=== PATIENT | male | born 1965 | race Hispanic/Latino ===

== ENCOUNTER 2023-05-15 05:03 | Observation (INO) | payer BC ==
[2023-05-10 11:42] VITALS: BP 169/83; PULSE 67; RESP 15
[2023-05-15] VITALS (27 sets, daily range): BP systolic 132–182; BP diastolic 73–98; PULSE 64–85; RESP 14–21; O2SAT 94–98
[~2023-05-15] VITALS: Ht 170.2 cm; Wt 105.2 kg
[~2023-05-15 05:03] MED LIST: AEC81 PO; CETI10TA87 PO; FLUT16H EN; GLUC-252 PO; IBUP-2070 PO; L. A1CAP PO; MULT-1335 PO; SIMV-46 PO; TUMERIC PEG; VALS1TAB80 PO
[2023-05-15] MEDS ORDERED: CEFAZOLIN SODIUM 2 GM VIAL ONE (05:20)
[2023-05-15] MEDS ORDERED: LACTATED RINGERS 1000ML 1,000 ML IV ONE (05:20)
[2023-05-15] MEDS ORDERED: GENTAMICIN SULFATE 80 MG/2 ML VIAL ONE (06:45)
[2023-05-15] MEDS ORDERED: CEFAZOLIN SODIUM 1 GM VIAL ONE ×2 (06:45→06:51)
[2023-05-15] MEDS ORDERED: 0.9%NACL 100ML 48.45 ML, ROPIVACAINE 0.5% 5MG/ML 30ML 246.25 MG, KETOROLAC TROMETHAMINE... IV PRN ×5 (08:00)
[2023-05-15] MEDS ORDERED: SUCCINYLCHOLINE 200MG/10ML SYR ONE (09:00)
[2023-05-15] MEDS ORDERED: LIDOCAINE PF 100MG/5ML (2%) SYRINGE 5ML ONE (09:00)
[2023-05-15] MEDS ORDERED: DEXAMETHASONE SOD PHOSPHATE 10MG/ML 1ML VIAL ONE (09:01)
[2023-05-15] MEDS ORDERED: NEOSTIGMINE 5MG/5ML SYR IV ONE (09:01)
[2023-05-15] MEDS ORDERED: GLYCOPYRROLATE 1 MG/5 ML SYRINGE ONE (09:01)
[2023-05-15] MEDS ORDERED: MIDAZOLAM HCL 1 MG/ML 2ML VIAL ONE ×3 (09:01→10:48)
[2023-05-15] MEDS ORDERED: PROPOFOL 10 MG/ML 20ML VIAL IV ONE (09:01)
[2023-05-15] MEDS ORDERED: ROCURONIUM 10MG/1ML SYR 10 MG/ML ML ONE (09:01)
[2023-05-15] MEDS ORDERED: ONDANSETRON 4MG INJ ONE ×2 (09:01→13:02)
[2023-05-15] MEDS ORDERED: FENTANYL CITRATE PF 50 MCG/1 ML 2ML VIAL ONE ×3 (09:02→11:26)
[2023-05-15] MEDS ORDERED: CEFAZOLIN SODIUM 2 GM VIAL IVPB ONE ×2 (10:31→10:32)
[2023-05-15] MEDS ORDERED: TRANEXAMIC ACID 1000MG/10ML IV ONE (10:35)
[2023-05-15] MEDS ORDERED: TRANEXAMIC ACID 1000MG/10ML ONE ×2 (10:35)
[2023-05-15] MEDS ORDERED: GENTAMICIN SULFATE 80 MG/2 ML VIAL IM ONE (10:36)
[2023-05-15] MEDS ORDERED: DiphenhydrAMINE HCL 50 MG/ML VIAL ONE (12:23)
[2023-05-15] MEDS ORDERED: PHENYLEPHRINE HCL 10 MG/ML 1ML VIAL IV ONE (12:50)
[2023-05-15] MEDS ORDERED: MEPERIDINE-PF 25 MG/ML SYG ONE (13:02)
[2023-05-15] MEDS ORDERED: HYDROMORPHONE PCA 10 MG/50 ML 50 ML IV PRN (16:00)
[2023-05-15] MEDS ORDERED: MAG/ALUM/SIMETH 30 ML UDCUP PO PRN (16:00)
[2023-05-15] MEDS ORDERED: DIPHENOXYLATE HCL/ATROPINE 2.5/0.025 MG TAB PO PRN (16:00)
[2023-05-15] MEDS ORDERED: BENZOCAINE/MENTH/CETYLPYRD CL 1 EACH LOZENGE MM PRN (16:00)
[2023-05-15] MEDS ORDERED: TRAMADOL HCL 50 MG TABLET PO PRN (16:00)
[2023-05-15] MEDS ORDERED: ACETAMINOPHEN 325 MG TAB PO SCH (16:00)
[2023-05-15] MEDS ORDERED: ACETAMINOPHEN 325 MG TAB PO PRN ×2 (16:00)
[2023-05-15] MEDS ORDERED: DiphenhydrAMINE HCL 50 MG/ML VIAL IM PRN (16:00)
[2023-05-15] MEDS ORDERED: ONDANSETRON 4MG INJ IVP PRN (16:00)
[2023-05-15] MEDS ORDERED: DIPHENHYDRAMINE HCL 25 MG CAPSULE PO PRN (16:00)
[2023-05-15] MEDS ORDERED: DIPHENHYDRAMINE HCL 25 MG CAPSULE PO SCH (16:00)
[2023-05-15] MEDS ORDERED: LACTULOSE 20 GM/30 ML UDCUP PO PRN (16:00)
[2023-05-15] MEDS ORDERED: CEFAZOLIN SODIUM 2 GM VIAL IVPB SCH (18:30)
[2023-05-15] MEDS: 0.9%NACL 1000ML 1,000 ML IV SCH (21:48)
[2023-05-15] MEDS: CEFAZOLIN SODIUM 3 GM in DEXTROSE 5%-WATER 100 ML IVPB SCH (22:21)
[2023-05-16 00:03] VITALS: BP 127/73; PULSE 75; RESP 18
[2023-05-16] MEDS: 0.9%NACL 1000ML 1,000 ML IV SCH ×2 (02:00→12:42)
[2023-05-16 04:02] VITALS: BP 130/76; PULSE 71; RESP 18
[2023-05-16 04:05] LABS: HEMATOCRIT 36.3 % (42-54); MEAN CORPUSCULAR HEMOGLOBIN 28.9 pg (27.0-33.0); MEAN CORPUSCULAR HGB CONC 33.6 g/dL (32.0-36.0); RED BLOOD CELL COUNT(AUTO) 4.22 MIL/uL (4.50-6.20); RED CELL DISTRIBUTION WIDTH 13.2 % (11.0-15.5); WHITE BLOOD COUNT (AUTO) 14.7 K/uL (4.8-10.8)
[2023-05-16 04:08] LABS: CREATININE 0.9 mg/dL (0.5-1.5); MAGNESIUM 1.7 mg/dL (1.80-2.40); POTASSIUM 4.1 mmol/L (3.5-5.1)
[2023-05-16] MEDS: CEFAZOLIN SODIUM 3 GM in DEXTROSE 5%-WATER 100 ML IVPB SCH (05:17)
[2023-05-16 07:40] VITALS: O2SAT 97
[2023-05-16 07:57] VITALS: BP 139/82; PULSE 75; RESP 19
[2023-05-16] MEDS ORDERED: MAGNESIUM 2GM PREMIX 50ML 50 ML IV PRN (08:30)
[2023-05-16] MEDS ORDERED: FOLIC PO SCH (09:00)
[2023-05-16] MEDS ORDERED: MULTIVIT MIN PO SCH (09:00)
[2023-05-16] MEDS ORDERED: LYCOP PO SCH (09:00)
[2023-05-16] MEDS ORDERED: FLUTICASONE PROPIONATE 50MCG/SPRAY 16 GM BOTTLE EN SCH (09:00)
[2023-05-16] MEDS ORDERED: RIVAROXABAN 10 MG TABLET PO SCH (09:00)
[2023-05-16] MEDS ORDERED: TUMERIC 500 MG PO SCH (09:00)
[2023-05-16] MEDS ORDERED: CETIRIZINE HCL 5 MG TABLET PO SCH (09:00)
[2023-05-16] MEDS ORDERED: VIT K PO SCH (09:00)
[2023-05-16 11:31] VITALS: BP 120/65; PULSE 75; RESP 18
[2023-05-16 16:00] VITALS: BP 129/76; PULSE 80; RESP 18
== END 2023-05-16 16:27 | disposition home health service (06) ==
LOC: DAH 05:03 → DAHIP 05:04 → DAH 05:04 → 4BH 14:25
PROVIDERS: ADMIT Orthopaedic Surgery; ATTEND Orthopaedic Surgery
DX: M17.12 Unilateral primary osteoarthritis, left knee (principal); I10 Essential (primary) hypertension; E66.9 Obesity, unspecified; E78.5 Hyperlipidemia, unspecified; Q33.3 Agenesis of lung; Z96.652 Presence of left artificial knee joint; Z79.899 Other long term (current) drug therapy; Z98.890 Other specified postprocedural states; Z68.36 Body mass index [BMI] 36.0-36.9, adult
CPT/HCPCS: 87641; 27447; 96365; 96366 ×3; 96368; 97161; 97039 ×6; 97012 ×3; 97116 ×2; 96375; 83735; 80048; 85027; 36415; 97530; A6260; G0378 ×23; G0379; A4663; J7120 ×2; A4215 ×2; A4649 ×4; J1200; J3010 ×3; J0690 ×6; J3490 ×4; J1170; J0330; J1100; J2710; J2001; J1580 ×2; J2250 ×3; J7060; J2704; J2405 ×2; J2175; J2371; A6223; C1763 ×2; C1776; A5120; A4223; A4222; A4221; A6450; J7030; A4510; J3475; 96367